=== PATIENT | female | born 1950 | race Caucasian/White ===

== ENCOUNTER 2017-03-19 10:24 | Outpatient (CLI) | payer OTHER | END 2017-03-19 18:25 | disposition home or self-care (01) | LOC: SMA 10:24 | PROVIDERS: ATTEND Family Medicine | DX: N60.02 Solitary cyst of left breast (principal); N60.01 Solitary cyst of right breast; N63 Unspecified lump in breast | CPT/HCPCS: 76641; G0204 ==

== ENCOUNTER 2017-09-25 12:45 | Outpatient (CLI) | payer OTHER | END 2017-09-25 21:22 | disposition home or self-care (01) | LOC: SMA 12:45 | PROVIDERS: ATTEND Obstetrics & Gynecology Gynecology | DX: N60.02 Solitary cyst of left breast (principal); N60.01 Solitary cyst of right breast | CPT/HCPCS: 76641; G0204 ==

== ENCOUNTER 2017-10-21 06:28 | Day surgery (SDC) | payer OTHER ==
[2017-10-21] MEDS ORDERED: SIMETHICONE 40 MG/0.6 ML ML ONE (07:18)
[2017-10-21] MEDS: MIDAZOLAM HCL 5 MG/5 ML VIAL ONE ×4 (08:17→08:35)
[2017-10-21] MEDS: fentaNYL CITRATE/PF 100 MCG/2 ML AMP ONE ×8 (08:17→08:53)
[2017-10-21 16:12] VITALS: BP_SYST 114
== END 2017-10-21 09:55 | disposition home or self-care (01) ==
LOC: SDS 06:28 → SMU 06:30 → SDS 09:55
PROVIDERS: ATTEND Surgery
DX: Z12.11 Encounter for screening for malignant neoplasm of colon (principal); K40.90 Unilateral inguinal hernia, without obstruction or gangrene, not specified as recurrent; K63.89 Other specified diseases of intestine
CPT/HCPCS: 45378; J2250; J3010

== ENCOUNTER 2017-11-26 07:53 | Day surgery (SDC) | payer OTHER ==
[~2017-11-26] VITALS: Ht 154.9 cm; Wt 49.9 kg
[~2017-11-26 07:53] MED LIST: CEFAZOLIN SOD 2 GM in D5W 50 ML IV ONE
[2017-11-26] MEDS ORDERED: POLYMYXIN 500,000/BACIT.10,000 UNITS in NS IRR 1 L IR ONE (10:49)
[2017-11-26] MEDS ORDERED: LR 1,000 ML IV ONE (11:03)
[2017-11-26] MEDS ORDERED: ONDANSETRON HCL 4 MG/2 ML VIAL IVP PRN ×2 (11:15)
[2017-11-26] MEDS ORDERED: DIPHENHYDRAMINE INJ 50 MG/ML VIAL IVP PRN (11:15)
[2017-11-26] MEDS ORDERED: fentaNYL CITRATE/PF 100 MCG/2 ML AMP IVP PRN (11:15)
[2017-11-26] MEDS ORDERED: ePHEDrine sulfate 50 MG/ML VIAL IVP PRN (11:15)
[2017-11-26] MEDS ORDERED: NALOXONE HCL 0.4 MG/ML AMP (NARCAN) IVP PRN (11:15)
[2017-11-26] MEDS ORDERED: NALBUPHINE HCL 10 MG/ML AMP IVP PRN (11:15)
[2017-11-26] MEDS ORDERED: DEXAMETHASONE SOD PHOSPHATE 4 MG/ML VIAL IVP ONE (11:56)
[2017-11-26] MEDS ORDERED: fentaNYL CITRATE/PF 100 MCG/2 ML AMP IVP ONE (11:56)
[2017-11-26] MEDS ORDERED: LR 1,000 ML IV.SOLN IV ONE (11:56)
[2017-11-26] MEDS ORDERED: PROPOFOL 200MG/ 20ML VIAL (DIPRIVAN) IV ONE (11:56)
[2017-11-26] MEDS ORDERED: METOCLOPRAMIDE HCL 10 MG/2 ML VIAL IVP ONE (11:56)
[2017-11-26] MEDS ORDERED: KETOROLAC TROMETHAMINE 30 MG VIAL IVP ONE (11:56)
[2017-11-26] MEDS ORDERED: SEVOFLURANE 15 MIN GAS INH ONE (11:56)
[2017-11-26] MEDS ORDERED: ONDANSETRON HCL 4 MG/2 ML VIAL IVP ONE (11:56)
[2017-11-26] MEDS ORDERED: NS IRRIG SOLN 1000 ML IR ONE (11:56)
[2017-11-26] MEDS ORDERED: D5/0.45 NS 1,000 ML IV SCH (12:15)
[2017-11-26] MEDS ORDERED: HYDROcodone/ACETAMIN 5-325 MG TAB (NORCO/ VICODIN) PO PRN ×2 (12:15)
[2017-11-26] MEDS ORDERED: HYDR-1189 PO (12:34)
[2017-11-26 12:49] VITALS: BP_SYST 115
[2017-11-26] MEDS ORDERED: METOCLOPRAMIDE HCL 10 MG/2 ML VIAL IVP SCH (18:00)
== END 2017-11-26 14:45 | disposition home or self-care (01) ==
LOC: SDS 07:53 → SMU 07:53 → SDS 14:45
PROVIDERS: ATTEND Surgery
DX: K40.90 Unilateral inguinal hernia, without obstruction or gangrene, not specified as recurrent (principal); D17.1 Benign lipomatous neoplasm of skin and subcutaneous tissue of trunk; M19.90 Unspecified osteoarthritis, unspecified site; I77.1 Stricture of artery; M41.80 Other forms of scoliosis, site unspecified; E78.5 Hyperlipidemia, unspecified; I10 Essential (primary) hypertension
CPT/HCPCS: 49505; 71046; 88302; 93005; C1781; J0690; J1100; J1885; J2405; J2704; J2765; J3010; J7060; J7120

== ENCOUNTER 2018-03-30 10:22 | Outpatient (CLI) | payer OTHER ==
[~2018-03-30 10:22] MED LIST changes: -CEFAZOLIN SOD 2 GM in D5W 50 ML IV ONE; +HYDR-1189 PO
== END 2018-03-30 20:31 | disposition home or self-care (01) ==
LOC: SUS 10:22
PROVIDERS: ATTEND Obstetrics & Gynecology Gynecology
DX: N60.01 Solitary cyst of right breast (principal); N60.02 Solitary cyst of left breast; I10 Essential (primary) hypertension; E78.5 Hyperlipidemia, unspecified
CPT/HCPCS: 76641; 77066